=== PATIENT | male | born 1950 | race Caucasian/White ===

== ENCOUNTER → 2018-04-09 17:03 | Outpatient (CLI) | payer OTHER, SELFPAY ==
--- NOTE | 2018-04-09 17:07 | DI.RAD.S_ITS ---
PROCEDURE: XR HIP W PEL IF DONE RT 2V INDICATIONS: RIGHT HIP PAIN TECHNIQUE: 3 views of the hip were acquired. COMPARISON: None. FINDINGS: Bones: Severe right hip joint osteoarthritis is seen with complete loss of joint space, subchondral sclerosis and cyst formation, prominent marginal osteophyte formation No fractures or dislocations. No suspicious bony lesions. 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 The visualized pelvic ring appears intact. Soft tissues: No suspicious soft tissue calcifications or masses. IMPRESSION: Severe right hip joint osteoarthritis. No fracture or dislocation. No radiographic evidence of avascular necrosis. Dictated by: Aj Sawant M.D. on 04/09/2018 at 18:01 Approved by: Aj Sawant M.D. on 04/09/2018 at 18:02
== END ==
PROVIDERS: Family Provider Family Medicine; PCP Family Medicine; Visit Provider Family Medicine
DX: M16.11 Unilateral primary osteoarthritis, right hip (principal); M25.551 Pain in right hip
CPT/HCPCS: 73502

== ENCOUNTER → 2019-05-23 12:49 | Outpatient (CLI) | payer OTHER, SELFPAY ==
[2019-05-23 13:21] LABS: Add Manual Diff / Slide Review NO; Basophils Absolute Auto 0 /uL (0-100); Basophils Percent Auto 0.7 % (0-2); Eosinophils Absolute Auto 200 /uL (0-450); Eosinophils Percent Auto 2.3 % (2-4); Hematocrit 42.5 % (41-53); Hemoglobin 14.6 g/dL (13.5-17.5); Lymphocytes Absolute Auto 3100 /uL (1100-4500); Lymphocytes Percent Auto 42.7 % (25-40); Mean Corpuscular HGB Conc 34.3 % (30-36); Mean Corpuscular Hemoglobin 32.3 PG (26-34); Mean Corpuscular Volume 94.3 fL (80-100); Monocytes Absolute Auto 700 /uL (0-900); Neutrophils Absolute Auto 3200 /uL (1500-7000); Neutrophils Percent Auto 44.3 % (50-75); Platelet Count 267 X10^3/uL (150-400); Red Blood Cell Count 4.51 X10^6/uL (4.5-5.9); Red Cell Distribution Width 13.9 % (11.6-14.8); White Blood Cell Count 7.2 X10^3/uL (4.5-11.0)
[2019-05-23 13:37] LABS: Alanine Aminotransferase 20 IU/L (21-72); Albumin 3.9 g/dL (3.5-5.0); Albumin Globulin Ratio 1.6 (1.0-2.8); Alkaline Phosphatase 75 U/L (38-126); Aspartate Aminotransferase 22 IU/L (17-59); Bilirubin Total 0.6 mg/dL (0.2-1.3); Blood Urea Nitrogen 12 mg/dL (9-20); Calcium 8.6 mg/dL (8.4-10.2); Carbon Dioxide 27 mmol/L (22-32); Chloride 105 mmol/L (98-107); Cholesterol 129 mg/dL (140-199); Estimated Glomerular Filt Rate > 60.0 mL/min (>60); Globulin 2.4 g/dL (1.7-4.1); Glucose 97 mg/dL (80-110); HDL Cholesterol 41 mg/dL (40-60); HEMOLYSIS < 15 (0-50); LDL Cholesterol Calculated 69 mg/dL (<100); Potassium 4.1 mmol/L (3.4-5.1); Sodium 139 mmol/L (137-145); Total Protein 6.3 g/dL (6.3-8.2); Triglycerides 95 mg/dL (35-150)
[2019-05-23 14:06] LABS: Thyroid Stimulating Hormone 1.93 uIU/mL (0.47-4.68)
[2019-05-23 14:07] LABS: Prostate Specific Antigen 0.347 ng/mL (0.10-4.00)
== END ==
PROVIDERS: Family Provider Family Medicine; PCP Family Medicine; Visit Provider Family Medicine
DX: E66.01 Morbid (severe) obesity due to excess calories (principal); R53.83 Other fatigue; Z12.5 Encounter for screening for malignant neoplasm of prostate; Z13.0 Encounter for screening for diseases of the blood and blood-forming organs and certain disorders involving the immune mechanism; Z13.220 Encounter for screening for lipoid disorders; Z13.29 Encounter for screening for other suspected endocrine disorder; Z98.84 Bariatric surgery status
CPT/HCPCS: 36415; 80053; 80061; 84153; 84443; 85025

== ENCOUNTER → 2022-04-05 15:58 | Outpatient (CLI) | payer OTHER, SELFPAY ==
[2022-04-05 16:46] LABS: Add Manual Diff / Slide Review NO; Basophils Absolute Auto 0 /uL (0-100); Basophils Percent Auto 0.5 % (0-2); Eosinophils Absolute Auto 200 /uL (0-450); Eosinophils Percent Auto 2.4 % (2-4); Hematocrit 41.8 % (41-53); Hemoglobin 14.5 g/dL (13.5-17.5); Lymphocytes Absolute Auto 2400 /uL (1100-4500); Lymphocytes Percent Auto 30.5 % (25-40); Mean Corpuscular HGB Conc 34.6 % (30-36); Mean Corpuscular Hemoglobin 32.4 PG (26-34); Mean Corpuscular Volume 93.8 fL (80-100); Monocytes Absolute Auto 800 /uL (0-900); Monocytes Percent Auto 10.2 % (3-14); Neutrophils Absolute Auto 4500 /uL (1500-7000); Neutrophils Percent Auto 56.4 % (50-75); Platelet Count 246 X10^3/uL (150-400); Red Blood Cell Count 4.46 X10^6/uL (4.5-5.9); Red Cell Distribution Width 13.6 % (11.6-14.8)
[2022-04-05 16:51] LABS: Appearance Urine UA CLEAR; Bilirubin Urine UA NEGATIVE (NEGATIVE); Color Urine UA YELLOW; Glucose Urine UA NEGATIVE (Negative); Ketones Urine UA NEGATIVE (NEGATIVE); Leukocyte Esterase Urine UA NEGATIVE (NEGATIVE); Nitrite Urine UA NEGATIVE (Negative); Occult Blood Urine UA 1+ (Negative); Protein Urine UA NEGATIVE (Negative); Specific Gravity Urine UA 1.025 (1.000-1.035); Urobilinogen Urine UA 0.2 E.U./dL (0.2)
[2022-04-05 17:05] LABS: Hemoglobin A1C% w Est Avg Glu 5.5 % (4.0-6.0)
[2022-04-05 17:18] LABS: Bacteria Urine Occasional (0-1); Culture Indicated Urine Cult Not Indicated; Mucus Urine 1+ (Negative); RBC Urine 0-1/HPF (0-5/HPF); Squamous Epithelial Cell Urine 0-1 /HPF (0-5/HPF); Transitional Epi Cells Urine 0-1/HPF (0-5/HPF); WBC Urine 1-5/HPF (0-5/HPF)
[2022-04-05 17:41] LABS: Alanine Aminotransferase 17 IU/L (<50); Albumin 3.9 g/dL (3.5-5.0); Albumin Globulin Ratio 1.8 (1.0-2.8); Alkaline Phosphatase 76 U/L (38-126); Aspartate Aminotransferase 22 IU/L (17-59); BUN Creatinine Ratio 15.7 (6-22); Bilirubin Total 0.6 mg/dL (0.2-1.3); Blood Urea Nitrogen 13 mg/dL (9-20); Calcium 8.3 mg/dL (8.4-10.2); Carbon Dioxide 26 mmol/L (22-32); Chloride 106 mmol/L (98-107); Cholesterol 139 mg/dL (140-199); Estimated Glomerular Filt Rate > 60 mL/min (>60); Globulin 2.2 g/dL (1.7-4.1); Glucose 99 mg/dL (80-110); HDL Cholesterol 46 mg/dL (40-60); HEMOLYSIS 22 (0-50); LDL Cholesterol Calculated 69 mg/dL (<100); Potassium 4.2 mmol/L (3.4-5.1); Sodium 140 mmol/L (137-145); Total Protein 6.1 g/dL (6.3-8.2); Triglycerides 121 mg/dL (35-150); Uric Acid 4.5 mg/dL (3.5-8.5)
== END ==
PROVIDERS: Family Provider Family Medicine; PCP Family Medicine; Referring Provider Family Medicine; Visit Provider Family Medicine
DX: R30.0 Dysuria (principal); I10 Essential (primary) hypertension; N40.0 Benign prostatic hyperplasia without lower urinary tract symptoms; Z98.84 Bariatric surgery status
CPT/HCPCS: 36415; 80053; 80061; 81001; 83036; 84550; 85025

== ENCOUNTER → 2023-04-18 17:00 | Outpatient (CLI) | payer OTHER, MEDICARE, SELFPAY ==
[2023-04-18 18:03] LABS: Add Manual Diff / Slide Review NO; Basophils Absolute Auto 0 /uL (0-100); Basophils Percent Auto 0.5 % (0-2); Eosinophils Absolute Auto 200 /uL (0-450); Eosinophils Percent Auto 2.9 % (2-4); Hematocrit 40.9 % (41-53); Hemoglobin 14.2 g/dL (13.5-17.5); Lymphocytes Absolute Auto 2500 /uL (1100-4500); Lymphocytes Percent Auto 36.2 % (25-40); Mean Corpuscular HGB Conc 34.6 % (30-36); Mean Corpuscular Hemoglobin 32.5 PG (26-34); Mean Corpuscular Volume 93.8 fL (80-100); Monocytes Absolute Auto 600 /uL (0-900); Monocytes Percent Auto 8.6 % (3-14); Neutrophils Absolute Auto 3500 /uL (1500-7000); Neutrophils Percent Auto 51.8 % (50-75); Platelet Count 261 X10^3/uL (150-400); Red Blood Cell Count 4.36 X10^6/uL (4.5-5.9); White Blood Cell Count 6.8 X10^3/uL (4.5-11.0)
[2023-04-18 20:49] LABS: HEMOLYSIS < 15 (0-50)
[2023-04-18 20:54] LABS: Alanine Aminotransferase 19 IU/L (<50); Albumin 3.6 g/dL (3.5-5.0); Albumin Globulin Ratio 1.4 (1.0-2.8); Alkaline Phosphatase 75 U/L (38-126); Aspartate Aminotransferase 25 IU/L (17-59); BUN Creatinine Ratio 19.3 (6-22); Bilirubin Total 0.4 mg/dL (0.2-1.3); Blood Urea Nitrogen 17 mg/dL (9-20); Calcium 8.5 mg/dL (8.4-10.2); Carbon Dioxide 25 mmol/L (22-32); Chloride 107 mmol/L (98-107); Cholesterol 122 mg/dL (140-199); Estimated Glomerular Filt Rate > 60 mL/min (>60); Globulin 2.5 g/dL (1.7-4.1); Glucose 95 mg/dL (80-110); HDL Cholesterol 36 mg/dL (40-60); LDL Cholesterol Calculated 61 mg/dL (<100); Sodium 139 mmol/L (137-145); Total Protein 6.1 g/dL (6.3-8.2); Triglycerides 125 mg/dL (35-150)
[2023-04-19 00:19] LABS: Prostate Specific Antigen Scrn 0.573 ng/mL (0.1-4.0)
== END ==
PROVIDERS: Family Provider Family Medicine; PCP Family Medicine; Referring Provider Family Medicine; Visit Provider Family Medicine
DX: E66.01 Morbid (severe) obesity due to excess calories (principal); I10 Essential (primary) hypertension; I48.91 Unspecified atrial fibrillation; M16.10 Unilateral primary osteoarthritis, unspecified hip; Z12.5 Encounter for screening for malignant neoplasm of prostate
CPT/HCPCS: 36415; 80053; 80061; 85025; G0103

== ENCOUNTER → 2023-04-22 | Outpatient (CLI) | payer OTHER, MEDICARE, SELFPAY ==
--- NOTE | 2023-04-22 16:50 | DI.RAD.S_ITS ---
PROCEDURE: XR FOOT LT MIN 3V INDICATIONS: left ankle pain and deformity TECHNIQUE: 3 views of the foot were acquired. COMPARISON: [facility], CR, XR FOOT 3+ VIEWS RIGHT, 04/09/2022, 19:10. [facility], CR, XR ANKLE LT MIN 3V, 04/22/2023, 17:05. FINDINGS: Bones: No acute fractures or dislocations bony deformity of the medial aspect of the navicular possibly related to healed fracture deformity. No suspicious bony lesions. Mild 1st MTP and diffuse interphalangeal joint space narrowing with mild periarticular osteophyte formation. Juxta-articular lucencies involve the medial aspect of the 1st MTP joint. Retrocalcaneal plantar bone spurs Soft tissues: No tibiotalar joint effusion. Achilles tendon appears normal. IMPRESSION: 1. 1st MTP and diffuse interphalangeal joint degeneration. 2. Juxta-articular lucencies involving the 1st MTP and 1st interphalangeal joints consistent with subchondral cystic change versus bony erosions. Dictated by: Julio DOZIER Interpreted: Vinicio Wong MD on 04/22/2023 at 21:04 Approved by: Vinicio Wong M.D. on 05/01/2023 at 1:57
--- NOTE | 2023-04-22 16:50 | DI.RAD.S_ITS ---
PROCEDURE: XR ANKLE LT MIN 3V INDICATIONS: left ankle pain and deformity TECHNIQUE: 3 views of the ankle were acquired. COMPARISON: None. FINDINGS: Bones: No fractures or dislocations. Mild widening of the medial ankle mortise.. No suspicious bony lesions. Retrocalcaneal plantar bone spurs. Soft tissues: No tibiotalar joint effusion. Achilles tendon appears normal. IMPRESSION: Mild widening of the medial ankle mortise and ligamentous injury cannot be excluded. Recommend clinical correlation and if indicated, MRI could be performed for further assessment. Dictated by: Julio Rashid [facility] Interpreted: Vinicio Wong MD on 04/22/2023 at 21:03 Approved by: Vinicio Wong M.D. on 05/01/2023 at 1:56
== END ==
LOC: RAD 16:50
PROVIDERS: Family Provider Family Medicine; PCP Family Medicine; Referring Provider Family Medicine; Visit Provider Family Medicine
DX: M19.072 Primary osteoarthritis, left ankle and foot (principal); M25.572 Pain in left ankle and joints of left foot; M77.32 Calcaneal spur, left foot
CPT/HCPCS: 73610; 73630

== ENCOUNTER → 2023-05-20 15:55 | Outpatient (CLI) | payer OTHER, MEDICARE, SELFPAY ==
--- NOTE | 2023-05-20 15:58 | DI.ECHO.S_ITS ---
[facility]---------+ [facility] +---------+ : : [address] : [address] : : : : [id number] : : : : Phone: [phone]+ Echocardiogram Report + + :Name: YVONNE MELTON Study Date: 05/20/2023 Height: 77 in : :[facility] ReadingLocation: Weight: 330 lb: : Gender: Male BSA: 2.8 m2 : :: 1950 Age: 72 yrs BP: 91/70 mmHg: :Reason For Study: Atrial Fibrillation : :Ordering Physician: BEATRICE LANGFORDPerformed By: Bere Henry : :Referring: BEATRICE LANGFORD : + + Interpretation Summary The ejection fraction is estimated to be 50-55%. Diastolic function could not be accurately assessed due to atrial fibrillation. The left atrium is mildly dilated. The right ventricle is normal in size and function. No significant valvular abnormalities. Pulmonary artery pressures cannot be estimated because of the lack of a measurable TR jet velocity. Procedure: A two-dimensional transthoracic echocardiogram with color flow and Doppler was performed. The study quality was technically adequate. The patient had an echocardiogram, but there is no comparison study available. The patient was in atrial fibrillation with heart rates between 44-108 bpm during the exam. Left Ventricle: The left ventricle is normal in size. The ejection fraction is estimated to be 50-55%. Diastolic function could not be accurately assessed due to atrial fibrillation. Right Ventricle: The right ventricle is normal in size and function. Atria: The left atrium is mildly dilated. Right atrial size is normal. There is no Doppler evidence for an interatrial shunt. Mitral Valve: The mitral valve is normal. There is no mitral valve stenosis. There is trace mitral regurgitation. Aortic Valve: The aortic valve is trileaflet. The aortic valve opens well. There is no aortic valve stenosis. No aortic regurgitation is present. Tricuspid Valve: The tricuspid valve is normal. There is no tricuspid stenosis. There is trace tricuspid regurgitation. Pulmonary artery pressures cannot be estimated because of the lack of a measurable TR jet velocity. Pulmonic Valve: The pulmonic valve is not well visualized. There is no pulmonic valvular stenosis. There is trace pulmonic regurgitation. Great Vessels: The aortic root is normal size. The ascending aorta is normal in size. The pulmonary artery is normal size. The inferior vena cava was not well visualized. Pericardium/ Pleura There is no pericardial effusion. There is no pleural effusion. MMode/2D Measurements & Calculations LVIDd: 5.8 cm LVOT diam: 2.2 cm LVIDs: 3.5 cm Ao root diam: 3.4 cm FS: 39.7 % asc Aorta Diam: 3.5 cm IVSd: 0.80 cm LVPWd: 1.0 cm LV ribeiro. diameter/BSA (cm/m^2): 2.1 LV sys. diameter/BSA (cm/m^2): 1.3 LA A2 area: 25.0 cm2 RA long axis: 5.4 cm LA A4 area: 25.5 cm2 RA area: 20.4 cm2 LA length (vol): 6.4 cm RA vol: 65.8 ml LA vol: 84.4 ml RA : 23.8 ml/m2 LA vol index: 30.5 ml/m2 RVD1 (basal): 4.2 cm LVLs ap4: 6.5 cm TAPSE: 2.5 cm LVLd ap2: 7.6 cm LVLs ap2: 6.4 cm Doppler Measurements & Calculations TR max sandra: 247.2 cm/sec TR max P.5 mmHg Reading Physician:05:21 PM
== END ==
PROVIDERS: Family Provider Family Medicine; PCP Family Medicine; Referring Provider Family Medicine; Visit Provider Family Medicine
DX: I48.91 Unspecified atrial fibrillation (principal)
CPT/HCPCS: 93306

== ENCOUNTER → 2023-06-20 16:57 | Outpatient (CLI) | payer OTHER, MEDICARE, SELFPAY ==
[2023-06-20 17:39] LABS: Add Manual Diff / Slide Review NO; Basophils Absolute Auto 0 /uL (0-100); Basophils Percent Auto 0.3 % (0-2); Eosinophils Absolute Auto 100 /uL (0-450); Eosinophils Percent Auto 1.6 % (2-4); Hematocrit 38.3 % (41-53); Hemoglobin 13.4 g/dL (13.5-17.5); Lymphocytes Absolute Auto 2500 /uL (1100-4500); Mean Corpuscular Volume 94.2 fL (80-100); Monocytes Absolute Auto 600 /uL (0-900); Monocytes Percent Auto 8.3 % (3-14); Neutrophils Absolute Auto 3800 /uL (1500-7000); Neutrophils Percent Auto 53.8 % (50-75); Platelet Count 247 X10^3/uL (150-400); Red Blood Cell Count 4.06 X10^6/uL (4.5-5.9); Red Cell Distribution Width 13.7 % (11.6-14.8)
[2023-06-20 18:13] LABS: INR 1.3 (0.9-1.3); Prothrombin Time 14.8 SECONDS (10.1-12.7)
[2023-06-20 18:19] LABS: Alanine Aminotransferase 21 IU/L (<50); Albumin 3.6 g/dL (3.5-5.0); Albumin Globulin Ratio 1.5 (1.0-2.8); Alkaline Phosphatase 58 U/L (38-126); Aspartate Aminotransferase 24 IU/L (17-59); BUN Creatinine Ratio 20.2 (6-22); Bilirubin Total 0.6 mg/dL (0.2-1.3); Blood Urea Nitrogen 18 mg/dL (9-20); Calcium 8.8 mg/dL (8.4-10.2); Carbon Dioxide 26 mmol/L (22-32); Chloride 105 mmol/L (98-107); Estimated Glomerular Filt Rate > 60 mL/min (>60); Globulin 2.4 g/dL (1.7-4.1); Glucose 85 mg/dL (80-110); HEMOLYSIS 21 (0-50); Potassium 4.2 mmol/L (3.4-5.1); Sodium 137 mmol/L (137-145)
== END ==
PROVIDERS: Family Provider Family Medicine; PCP Family Medicine; Referring Provider Family Medicine; Visit Provider Family Medicine
DX: Z01.810 Encounter for preprocedural cardiovascular examination (principal)
CPT/HCPCS: 36415; 80053; 85025; 85610

== ENCOUNTER → 2023-11-04 09:38 | Outpatient (CLI) | payer OTHER, MEDICARE, SELFPAY ==
[2023-11-04 12:31] LABS: Add Manual Diff / Slide Review NO; Basophils Absolute Auto 0 /uL (0-100); Basophils Percent Auto 0.7 % (0-2); Eosinophils Absolute Auto 100 /uL (0-450); Eosinophils Percent Auto 2.2 % (2-4); Hematocrit 39.9 % (41-53); Hemoglobin 13.4 g/dL (13.5-17.5); Lymphocytes Absolute Auto 2100 /uL (1100-4500); Lymphocytes Percent Auto 32.3 % (25-40); Mean Corpuscular HGB Conc 33.6 % (30-36); Mean Corpuscular Hemoglobin 31.3 PG (26-34); Mean Corpuscular Volume 93.2 fL (80-100); Monocytes Absolute Auto 600 /uL (0-900); Monocytes Percent Auto 9.1 % (3-14); Neutrophils Absolute Auto 3600 /uL (1500-7000); Neutrophils Percent Auto 55.7 % (50-75); Platelet Count 262 X10^3/uL (150-400); Red Blood Cell Count 4.28 X10^6/uL (4.5-5.9); Red Cell Distribution Width 13.7 % (11.6-14.8); White Blood Cell Count 6.5 X10^3/uL (4.5-11.0)
[2023-11-04 13:02] LABS: Alanine Aminotransferase 15 IU/L (<50); Albumin 3.4 g/dL (3.5-5.0); Albumin Globulin Ratio 1.4 (1.0-2.8); Alkaline Phosphatase 86 U/L (38-126); Aspartate Aminotransferase 22 IU/L (17-59); BUN Creatinine Ratio 17.4 (6-22); Bilirubin Total 0.4 mg/dL (0.2-1.3); Blood Urea Nitrogen 15 mg/dL (9-20); Calcium 8.3 mg/dL (8.4-10.2); Carbon Dioxide 26 mmol/L (22-32); Chloride 111 mmol/L (98-107); Estimated Glomerular Filt Rate > 60 mL/min (>60); Globulin 2.5 g/dL (1.7-4.1); Glucose 86 mg/dL (80-110); HEMOLYSIS < 15 (0-50); Potassium 3.7 mmol/L (3.4-5.1); Sodium 141 mmol/L (137-145); Total Protein 5.9 g/dL (6.3-8.2)
[2023-11-05 11:40] LABS: Hemoglobin A1C% w Est Avg Glu 5.4 % (4.0-6.0)
== END ==
PROVIDERS: Family Provider Family Medicine; PCP Family Medicine; Referring Provider Family Medicine; Visit Provider Family Medicine
DX: I48.91 Unspecified atrial fibrillation (principal); E66.01 Morbid (severe) obesity due to excess calories; N40.0 Benign prostatic hyperplasia without lower urinary tract symptoms; I10 Essential (primary) hypertension
CPT/HCPCS: 36415; 80053; 83036; 85025